=== PATIENT | male | born 1950 | race Caucasian/White ===

== ENCOUNTER 2024-10-29 07:09 | Day surgery (SDC) | payer MEDICARE, BC ==
[~2024-10-29] VITALS: Ht 177.8 cm; Wt 97.7 kg
[~2024-10-29 07:09] MED LIST: ATOR1TAB21 PO; ECOT81TA5 PO; HYDR1CRE30 TOP; METO1TAB32 PO; MIDAZOLAM INJ 2 MG/2 ML VIAL As Ordered ONE; OMEP-173 PO; PHENYLEPHRINE 10% OPHTH SOL 5ML OD PRN; SILD100T PO; THERTAB52 PO; TRIA37.5 PO; XARE2.5T PO
[2024-10-29] MEDS ORDERED: BSS IRRIG/VANCO(10MG)/TOBRA(5MG)/EPINEPH(1:1000-0.5CC)500ML BAG-ORONLY ONE (07:10)
[2024-10-29] MEDS: TROPICAMIDE 1% OPHTH SOLN 15ML OD SCH (07:57)
[2024-10-29] MEDS: LIDOCAINE 3.5% 1 ML OPHTH TOPICAL GEL OU ONE (07:57)
[2024-10-29] MEDS: PHENYLEPHRINE 2.5% OPHTH SOL 2ML OD SCH (07:57)
[2024-10-29] MEDS: OFLOXACIN 0.3 % (OCUFLOX) OPTH SOL 5ML OD ONE (07:57)
[2024-10-29] MEDS: CYCLOPENTOLATE 1% OPHTH SOLN 2 ML BTL OD SCH (07:57)
[2024-10-29] MEDS: LIDOCAINE 1% SDV 5 ML VIAL As Ordered ONE (08:36)
[2024-10-29 09:06] VITALS: BP 122/65; TEMP 97.6; O2SAT 95
== END 2024-10-29 09:10 | disposition home or self-care (01) ==
LOC: M SDC 07:09
PROVIDERS: ATTEND Ophthalmology
DX: H25.11 Age-related nuclear cataract, right eye (principal); G47.30 Sleep apnea, unspecified; Z88.0 Allergy status to penicillin; Z88.2 Allergy status to sulfonamides; Z88.8 Allergy status to other drugs, medicaments and biological substances; Z87.891 Personal history of nicotine dependence; Z79.899 Other long term (current) drug therapy
CPT/HCPCS: 66984; J2250; J3010; V2632

== ENCOUNTER 2024-11-19 06:16 | Day surgery (SDC) | payer MEDICARE, BC ==
[~2024-11-19] VITALS: Ht 177.8 cm; Wt 98.9 kg
[~2024-11-19 06:16] MED LIST changes: -MIDAZOLAM INJ 2 MG/2 ML VIAL As Ordered ONE; -PHENYLEPHRINE 10% OPHTH SOL 5ML OD PRN; +PHENYLEPHRINE 10% OPHTH SOL 5ML OS PRN
[2024-11-19] MEDS: OFLOXACIN 0.3 % (OCUFLOX) OPTH SOL 5ML OS ONE (06:50)
[2024-11-19] MEDS: LIDOCAINE 3.5% 1 ML OPHTH TOPICAL GEL OU ONE (06:50)
[2024-11-19] MEDS ORDERED: MIDAZOLAM INJ 2 MG/2 ML VIAL As Ordered ONE (07:03)
[2024-11-19] MEDS: PHENYLEPHRINE 2.5% OPHTH SOL 2ML OS SCH (07:07)
[2024-11-19] MEDS: CYCLOPENTOLATE 1% OPHTH SOLN 2 ML BTL OS SCH (07:07)
[2024-11-19] MEDS: TROPICAMIDE 1% OPHTH SOLN 15ML OS SCH (07:08)
[2024-11-19] MEDS: CEFUROXIME 1 MG/0.1 ML INTRACAMERAL INJ As Ordered ONE (08:15)
[2024-11-19] MEDS: LIDOCAINE 1% SDV 5 ML VIAL As Ordered ONE (08:15)
[2024-11-19] MEDS: BSS IRRIG/VANCO(10MG)/TOBRA(5MG)/EPINEPH(1:1000-0.5CC)500ML BAG-ORONLY As Ordered ONE (08:15)
[2024-11-19 08:24] VITALS: BP 130/62; TEMP 97.1; O2SAT 97
== END 2024-11-19 08:39 | disposition home or self-care (01) ==
LOC: M SDC 06:16
PROVIDERS: ATTEND Ophthalmology
DX: H25.12 Age-related nuclear cataract, left eye (principal); I10 Essential (primary) hypertension; R73.03 Prediabetes; E78.00 Pure hypercholesterolemia, unspecified; G47.30 Sleep apnea, unspecified; Z86.718 Personal history of other venous thrombosis and embolism; K21.9 Gastro-esophageal reflux disease without esophagitis; Z79.899 Other long term (current) drug therapy; Z79.82 Long term (current) use of aspirin; Z79.01 Long term (current) use of anticoagulants; N40.0 Benign prostatic hyperplasia without lower urinary tract symptoms; Z88.0 Allergy status to penicillin; Z88.2 Allergy status to sulfonamides; Z88.8 Allergy status to other drugs, medicaments and biological substances
CPT/HCPCS: 66984; J0697; J2250; J3010; V2632